=== PATIENT | male | born 1970 | race Two or more races ===

== ENCOUNTER 2024-03-14 13:52 | Emergency (ER) | payer BC, SELFPAY ==
[2024-03-14 14:08] VITALS: BP 136/84; PULSE 74; RESP 20; TEMP 37.1; O2SAT 96; BMI 35.2
--- NOTE | 2024-03-14 14:27 | XR_ITS ---
Examination: CT abdomen and pelvis without contrast. Coronal 3-D reconstructions. Sagittal 2-D reconstructions. Date and time of exam:March 14, 2024 1433 hrs. Indications: Dark urine nausea vomiting beginning 5 days ago CTDI: vol (mGy): 15.3 DLP: (mGycm): 837 11 Technique: Axial images of the abdomen have been obtained, 3 mm slice thickness Intravenous contrast material has not been administered. Low dose protocols were performed. One or more of the following dose reduction techniques were used; automated exposure control, adjustment of the mA and/or KV according to patient size, use of iterative reconstruction technique. Findings: Low-density liver lesions, likely cysts, no biliary tract dilatation Absent gallbladder No pancreatic or adrenal mass No renal or ureteral calculi, no hydronephrosis Normal appendix Fluid distended small bowel loops in the left abdomen Contracted urinary bladder Transverse prostate dimension 4.2 cm The osseous structures are intact Impression: No renal or ureteral calculi, no hydronephrosis Normal appendix Fluid distended small bowel loops in the left abdomen, consider ileus, enteritis, clinical correlation advised
--- NOTE | 2024-03-14 14:27 | PD.EDRME ---
Rapid Medical Screening Exam RME Arrival date/time: 03/14/24 13:52 53-year-old male with past medical history of arthritis presents emergency department complaining of bilateral flank pain that is been ongoing for several days. Chief Complaint: Urogenital-Male Time Seen by Provider: 03/14/24 14:20 Vital signs: Vital Signs Temperature 98.7 F 03/14/24 14:08 Pulse Rate 74 03/14/24 14:08 Respiratory Rate 20 03/14/24 14:08 Blood Pressure 136/84 H 03/14/24 14:08 Pulse Oximetry (%) 96 03/14/24 14:08 Oxygen Delivery Method Room Air 03/14/24 14:08 Vital signs reviewed by provider: Yes
[2024-03-14] MEDS: KETOROLAC INJ 60 MG/2 ML VIAL 30 MG IM (14:40)
[2024-03-14 14:53] LABS: Collection Type, Urine Clean Catch; Squamous Epithelial Cell,Urine 0 /hpf (0-5)
[2024-03-14 14:54] LABS: Basophils % (Auto) 0 % (0-2.5); Eosinophils # (Auto) 0.1 Thou/mm3 (0.0-0.5); Eosinophils % (Auto) 1 % (0-10); Hematocrit 48.9 % (41.0-53.0); Hemoglobin 17.3 g/dL (13.5-16.0); Immature Granulocytes % (Auto) 0 % (0-0); Immature Granulocytes Auto 0.06 Thou/mm3 (0.00-0.00); Lymphocytes # (Auto) 0.5 Thou/mm3 (1.0-4.8); Lymphocytes % (Auto) 3 % (10-50); Mean Corpuscular HGB Conc 35.4 g/dl (31.0-37.0); Mean Corpuscular Hemoglobin 29.8 pg (25.0-35.0); Mean Corpuscular Volume 84 fL (80-100); Monocytes # (Auto) 0.6 Thou/mm3 (0.0-0.8); Monocytes % (Auto) 4 % (0-12); Neutrophils # (Auto) 12.6 Thou/mm3 (1.8-7.7); Neutrophils % (Auto) 91 % (37-80); Nucleated Red Blood Cell % 0 /100 WBC (0); Platelet Count 220 Thou/mm3 (140-440); RDW Standard Deviation 42.5 fL (35.1-43.9); White Blood Count 13.8 Thou/mm3 (3.8-10.6)
[2024-03-14 15:01] LABS: Bilirubin,Urine 2+ (Negative); Blood,Urine Negative (Negative); Calcium Oxalate Crystals,Urine 1+; Clarity,Urine Clear (Clear/Hazy); Color,Urine Dark-Brown (Lt Yel-Yel); Glucose, Urine Negative (Negative); Ketones,Urine Negative (Negative); Leukocyte Esterase,Urine Negative (Negative); Nitrite,Urine Positive (Negative); Protein,Urine Trace (Neg - Trace); RBC,Urine 3 /hpf (0-3); Specific Gravity,Urine 1.026 (1.001-1.035); WBC,Urine 1 /hpf (0-5)
[2024-03-14 15:14] LABS: Alanine Aminotransferase 35 U/L (10-49); Albumin, Serum 5.2 gm/dL (3.5-5.0); Albumin/Globulin Ratio 2.2 (1.2-2.2); Alkaline Phosphatase 134 U/L (46-116); Anion Gap 7 (7-16); Aspartate Amino Transferase 25 U/L (0-34); BUN/Creatinine Ratio 10 Ratio (12-20); Bilirubin,Total 1.4 mg/dL (0.3-1.2); Blood Urea Nitrogen 12 mg/dL (9-23); Calcium 9.7 mg/dL (8.3-10.6); Calcium (Corrected) 9.7 mg/dL (8.5-10.1); Carbon Dioxide 25.2 mMol/L (20.0-31.0); Chloride 102 mMol/L (98-107); Creatinine (Component) 1.2 mg/dL (0.6-1.3); Estimated Creatinine Clearance 95.4 mL/min (>60); Globulin 2.4 gm/dL (2.3-3.5); Glucose 103 mg/dL (74-106); Lipase 34 U/L (12-53); Osmolality,Calculated 267 (275-295); Potassium 4.2 mMol/L (3.4-5.1); Sodium 134 mMol/L (136-145); Total Protein 7.6 gm/dL (5.7-8.2); eGFR > 60 See Note
[2024-03-14 15:17] LABS: Culture Indicated,Urine Yes
--- NOTE | 2024-03-14 16:04 | PC.LAC ---
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
[2024-03-14 16:54] VITALS: BP 100/61; PULSE 61; RESP 18; TEMP 36.7; O2SAT 94
[2024-03-14 17:27] LABS: Creatine Kinase 154 U/L (34-171)
[2024-03-14 17:53] VITALS: BP 117/60; PULSE 63; RESP 18; TEMP 36.9; O2SAT 95
[2024-03-14] MEDS: HYDROcodone/APAP 5/325 TABLET 1 TAB PO (20:04)
--- NOTE | 2024-03-24 23:06 | EDNOTE_ITS ---
ED Male Genitalurinary RME/HPI General Chief complaint: Urogenital-Male Stated complaint: BILAT KIDNEY PAIN WITH DARK URINE Time Seen by Provider: 03/14/24 14:20 Arrival date/time: 03/14/24 13:52 RME / HPI RME / HPI Narrative: 03/14/24 13:52 53-year-old male with past medical history of arthritis presents emergency department complaining of bilateral flank pain that is been ongoing for several days. ------- Dr. Redmond?s Main ED Evaluation: 53yo male with a history of HTN presents to the ED for a chief complaint of bilateral flank pain x 3-4 days. No radiation or migration. Patient rates the pain a 9 out of 10 in severity. He reports associated dark-colored urine and dysuria. He denies any fever, chills, N/V/D or any other associated symptoms. No known allergies. Related Data Home Medications ?Medication ?Instructions ?Recorded ?Confirmed lisinopril 10 mg tablet 20 mg PO HS 08/05/17 09/10/17 Previous Rx's ?Medication ?Instructions ?Recorded hydrocodone 5 mg-acetaminophen 325 1 tab PO Q6H PRN pain #10 tabs 08/05/17 mg tablet ([place]) Allergies Allergy/AdvReac Type Severity Reaction Status Date / Time NKA* Allergy Uncoded 03/14/24 13:54 Review of Systems Review of Systems Systems Reviewed: All systems reviewed, normal except as documented Past Medical History Past Medical History NEUROLOGIC: Negative Neurological Disorders or Seizures CARDIAC: Positive Cardiac Disorders and Hypertension; Negative Congestive Heart Failure RESPIRATORY: Positive Sleep Apnea (USES CPAP); Negative Chronic Obstructive Pulmonary Disease (COPD) or Asthma GASTROINTESTINAL: Positive Gastrointestinal Disorders and Gall Bladder Disease; Negative Colorectal Cancer GENITOURINARY: Negative Genitourinary Disorders, Renal Disease or Prostate Cancer REPRODUCTIVE: Negative Testicular Cancer MUSCULOSKELETAL: Positive Musculoskeletal Disorders and Arthritis (MILD IN KNEES); Negative Bone Cancer ENDOCRINE: Negative Endocrine Disorders, Diabetes Mellitus Type 1 or Diabetes Mellitus Type 2 HEMATOLOGIC: Negative Blood Disorders or Sickle Cell Disease OTHER HISTORY: Positive Chicken Pox; Negative Hospitalization, Autoimmune Disease, Down Syndrome, Developmental Delay, Shingles, Falls, Blood Transfusions, Blood Transfusion Reaction, Anesthesia Reactions, Organ Transplant, Chemotherapy, Radiation Therapy, Hyperbaric Therapy, MRSA, VRSA, Vancomycin-Resistant Enterococci, Clostridium Difficile, Colorectal Cancer, Lung Cancer, Prostate Cancer or Testicular Cancer Family History FAMILY HISTORY: Positive Family Cardiac Disorders (PARENTS); Negative Family Psychiatric Problems, Family Respiratory Disorders, Family Gastrointestinal Problems, Family Cancer, Family Surgery or Family Anesthesia Reaction Surgical History SURGICAL: Positive Abdominal Surgery and Vasectomy; Negative Cardiac Surgery, Endocrine Surgery, Ear Surgery, Nephrectomy, Transurethral Resection, Joint Replacement, Amputation, Open Reduction Internal Fixation, Neurologic Surgery, Brain Shunt or Organ Transplant Social History SMOKING STATUS: Never smoker ED Exam Narrative Physical exam: GENERAL APPEARANCE: alert and oriented x 4, well-developed, well-nourished, no acute distress HEENT: Normocephalic, atraumatic; pupils equal, round, reactive to light; EOMI; mucous membranes pink, moist; oropharynx clear NECK: Supple LUNGS: CTABL; no wheezes, no rales, no rhonchi HEART: Regular rate, regular rhythm; normal S1, S2; no murmurs ABDOMEN: mildly distended; normal BS; soft, diffuse minimal tenderness, no guarding, no rebound; no masses, no organomegaly, no hernia BACK: no CVA tenderness EXTREMITIES: atraumatic; no edema NEUROLOGIC: awake; alert and oriented x4; cranial nerves II-XII grossly intact; no focal sensory or motor deficits PSYCHIATRIC: appropriate mood and affect SKIN: warm, dry, normal color; no rashes Course Quality Measures none Orders Category Date Time Status CT abdomen pelvis wo con Stat Exams 03/14/24 14:27 Completed CBC Stat Lab 03/14/24 14:50 Completed CK [Creatine Kinase] Stat Lab 03/14/24 14:50 Completed CMP [Comprehensive Metabolic Panel] Stat Lab 03/14/24 14:50 Completed Lipase Stat Lab 03/14/24 14:50 Completed Urinalysis, C/S if Indicated Stat Lab 03/14/24 14:31 Completed Urine Culture Stat Lab 03/14/24 14:31 Completed HYDROcodone*/APAP 5/325 [[place] 5/325] Med 03/14/24 19:56 Discontinued 1 tab PO X1 ONE Ketorolac Inj [Toradol Inj] Med 03/14/24 14:27 Discontinued 30 mg IM X1 ONE Vital Signs Vital signs: Vital Signs Temperature 98.7 F 03/14/24 14:08 Pulse Rate 74 03/14/24 14:08 Respiratory Rate 20 03/14/24 14:08 Blood Pressure 136/84 H 03/14/24 14:08 Pulse Oximetry (%) 96 03/14/24 14:08 Oxygen Delivery Method Room Air 03/14/24 14:08 Pulse ox is 96% on room air, which is normal according to my interpretation. Urogenital - Male Patient data External records reviewed:: [facility] previous records (Per chart review, patient has no relevant previous ED visits or admissions to this facility.) Clinical information provided by:: patient Social determinants that could affect healthcare access:: none Patient has the following chronic illnesses:: HTN How is presenting disease/condition affected by chronic disease/condition?: uneffected by Evaluation data The following diagnostics were reviewed and interpreted by me:: lab results and radiology exam(s) Lab and/or radiology exams considered but not ordered:: none Interpretation Summary: WBC count is elevated at 13.8, Lipase is normal, Total Bilirubin is slightly elevated at 1.4, UA shows trace protein, positive nitrite, 2+ bilirubin, and 1+ calcium oxalate crystals, according to my interpretation. ----- [facility] Report Signed Patient: NATALIE PETER Record#: [id number] Birthdate: 1970 Age/Sex: 53 / M [facility] Att[facility] Dr: Ordering Physician: Radha BHAGAT)Jose Rafael Date of Service: 03/14/24 Procedure(s): CT abdomen pelvis wo con Accession Number(s): [id number] cc: Reed Benson MD; Rex Eng MD; Radha Clifton (CARMEN)Jose Rafael~ Examination: CT abdomen and pelvis without contrast. Coronal 3-D reconstructions. Sagittal 2-D reconstructions. Date and time of exam:March 14, 2024 1433 hrs. Indications: Dark urine nausea vomiting beginning 5 days ago CTDI: vol (mGy): 15.3 DLP: (mGycm): 837 11 Technique: Axial images of the abdomen have been obtained, 3 mm slice thickness Intravenous contrast material has not been administered. Low dose protocols were performed. One or more of the following dose reduction techniques were used; automated exposure control, adjustment of the mA and/or KV according to patient size, use of iterative reconstruction technique. Findings: Low-density liver lesions, likely cysts, no biliary tract dilatation Absent gallbladder No pancreatic or adrenal mass No renal or ureteral calculi, no hydronephrosis Normal appendix Fluid distended small bowel loops in the left abdomen Contracted urinary bladder Transverse prostate dimension 4.2 cm The osseous structures are intact Impression: No renal or ureteral calculi, no hydronephrosis Normal appendix Fluid distended small bowel loops in the left abdomen, consider ileus, enteritis, clinical correlation advised Dictated By: Rex Eng MD Signed By: <Electronically signed by Rex Eng MD in OV> 03/14/24 1630 Medications / Prescriptions Medications or Prescriptions considered but not ordered:: none Medication administrations:: Medication Administration History Discontinued Medications Hydrocodone Bitart/Acetaminophen (Hydrocodone/Apap 5/325 Tablet) 1 tab PO X1 ONE Stop: 03/14/24 19:57 Last Admin: 03/14/24 20:04 Dose: 1 tab Documented By: MP Ketorolac Tromethamine (Ketorolac Inj 60 Mg/2 Ml Vial) 30 mg IM X1 ONE Stop: 03/14/24 14:28 Last Admin: 03/14/24 14:40 Dose: 30 mg Documented By: see above Consultations Consultation(s) initiated? (list below): No Diagnosis Urogenital Male Differential Diagnosis: urinary tract infection and other (colitis, diverticulitis, enteritis, pyelonephritis, cystitis) Most likely diagnosis given after review of the tests above:: see below Admission Indicated Admission indicated?: not indicated Admission Request Was there a request for admission?: No Disposition Plan Disposition Plan: Discharge Discharge Attestation Discharge Attestation: The patient and all family members were given an opportunity to ask questions and understood the discharge instructions. Discharge instructions specifically effects, indications for sooner follow up or return to the emergency department, and the expected course of current diagnosis. Patient condition: Stable Discharge Plan Plan Patient Disposition: HOME (Self Care) Prescriptions/Referrals Prescriptions/Med Rec: No Action lisinopril 10 mg Tablet 20 mg PO HS hydrocodone-acetaminophen [[place]] 5-325 mg tablet 1 tab PO Q6H MDD 4 PRN (Reason: pain) Qty: 10 0RF Referrals: Reed Benson MD [Primary Care Provider] - In 1 week Problem List Clinical Impression: Enteritis, Low back pain Patient/Caregiver Discharge Instructions Education Materials: ED Gastroenteritis, Noninfectious Print Language: [place] Stand Alone Forms: Heather Award Info., Patient Portal Info Letter
== END 2024-03-14 20:24 | disposition home or self-care (01) ==
PROVIDERS: Nurse Practitioner Family; Emergency Provider Emergency Medicine; PCP Family Medicine
DX: K52.9 Noninfective gastroenteritis and colitis, unspecified (principal); M54.50 Low back pain, unspecified; R30.0 Dysuria; I10 Essential (primary) hypertension
CPT/HCPCS: 36415; 74176; 80053; 81001; 82550; 83690; 85025; 87086; 96372; 99284; J1885; A9270

== ENCOUNTER → 2024-10-21 | Outpatient (CLI) | payer BC, SELFPAY ==
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
== END | disposition home or self-care (01) ==
PROVIDERS: PCP Family Medicine; Referring Provider Family Medicine; Visit Provider Family Medicine
DX: M54.2 Cervicalgia (principal)
CPT/HCPCS: 72050

== ENCOUNTER → 2025-04-12 | Outpatient (CLI) | payer BC, SELFPAY ==
[2025-04-12 12:57] LABS: Basophils # (Auto) 0.0 Thou/mm3 (0.0-0.2); Basophils % (Auto) 1 % (0-2.5); Eosinophils # (Auto) 0.1 Thou/mm3 (0.0-0.5); Eosinophils % (Auto) 2 % (0-10); Hematocrit 39.9 % (41.0-53.0); Hemoglobin 14.2 g/dL (13.5-16.0); Immature Granulocytes Auto 0.03 Thou/mm3 (0.00-0.00); Lymphocytes # (Auto) 2.0 Thou/mm3 (1.0-4.8); Lymphocytes % (Auto) 34 % (10-50); Mean Corpuscular HGB Conc 35.6 g/dl (31.0-37.0); Mean Corpuscular Hemoglobin 29.2 pg (25.0-35.0); Mean Corpuscular Volume 82 fL (80-100); Monocytes # (Auto) 0.4 Thou/mm3 (0.0-0.8); Monocytes % (Auto) 6 % (0-12); Neutrophils # (Auto) 3.5 Thou/mm3 (1.8-7.7); Neutrophils % (Auto) 58 % (37-80); Nucleated Red Blood Cell # 0.00 Thou/mm3 (0.00-0.00); Nucleated Red Blood Cell % 0 /100 WBC (0); Platelet Count 215 Thou/mm3 (140-440); RDW Standard Deviation 37.7 fL (35.1-43.9); Red Blood Count 4.86 Miln/mm3 (4.50-5.90); White Blood Count 6.1 Thou/mm3 (3.8-10.6)
[2025-04-12 13:13] LABS: Prostate Specific Antigen 1.24 ng/mL (0-4.00)
[2025-04-12 13:14] LABS: Alanine Aminotransferase 44 U/L (10-49); Albumin, Serum 4.6 gm/dL (3.5-5.0); Alkaline Phosphatase 129 U/L (46-116); Anion Gap 10 (7-16); Aspartate Amino Transferase 29 U/L (0-34); BUN/Creatinine Ratio 17 Ratio (12-20); Bilirubin,Direct 0.2 mg/dL (0.0-0.3); Bilirubin,Total 0.5 mg/dL (0.3-1.2); Blood Urea Nitrogen 15 mg/dL (9-23); Calcium 9.0 mg/dL (8.3-10.6); Carbon Dioxide 27.1 mMol/L (20.0-31.0); Cardiac Risk Estimate 4.1 RATIO (4.0-6.7); Chloride 105 mMol/L (98-107); Cholesterol 159 mg/dL (132-200); Creatinine (Component) 0.9 mg/dL (0.6-1.3); Glucose 89 mg/dL (74-106); HDL Cholesterol 39 mg/dL (40-60); LDL Cholesterol,Calculated 89 mg/dL (0-130); Osmolality,Calculated 282 (275-295); Potassium 4.0 mMol/L (3.4-5.1); Sodium 142 mMol/L (136-145); Total Protein 6.9 gm/dL (5.7-8.2); Triglycerides 157 mg/dL (30-150); eGFR > 60 See Note
== END | disposition home or self-care (01) ==
LOC: COPL 12:09
PROVIDERS: PCP Family Medicine; Referring Provider Family Medicine; Visit Provider Family Medicine
DX: M54.50 Low back pain, unspecified (principal); E78.1 Pure hyperglyceridemia; N40.0 Benign prostatic hyperplasia without lower urinary tract symptoms
CPT/HCPCS: 36415; 80048; 80061; 80076; 84153; 85025